=== PATIENT | female | born 1960 | race Caucasian/White ===

== ENCOUNTER 2017-11-12 11:47 | Emergency (ER) | payer OTHER ==
[~2017-11-12] VITALS: Ht 149.9 cm; Wt 57.9 kg
[~2017-11-12 11:47] MED LIST: FAMC125T PO; HERB LAX PO; IODINE PO
[2017-11-12 11:51] VITALS: TEMP 36.7; Ht 149.9 cm; Wt 57.9 kg
--- NOTE | 2017-11-12 12:27 | DIAGNOSTIC IMAGING REPORT ---
CHEST ONE VIEW PORTABLE CLINICAL HISTORY: syncope dyspnea COMPARISON STUDY: 04/24/2014 FINDINGS: The bones soft tissues and hemidiaphragms are normal. The cardiomediastinal silhouette is normal. The lungs are clear. The pulmonary vasculature is normal. IMPRESSION: Negative chest. The above report was generated using voice recognition software. It may contain grammatical, syntax or spelling errors. Electronically signed by: Shon Cohen M.D. 11/12/2017 12:26 PM Dictated Date/Time: 11/12/2017 12:26 PM
[2017-11-12 12:42] LABS: BASO % 0.1 %; BASO ABS # 0.01 K/uL (0-0.2); EOS % 0.8 %; EOS ABS # 0.07 K/uL (0-0.5); HEMATOCRIT 43.1 % (37-47); HEMOGLOBIN 15.2 g/dL (12.0-16.0); LYMPH % 22.3 %; LYMPH ABS # 1.84 K/uL (1.2-3.4); MEAN CELL VOLUME 89.4 fL (80-100); MEAN CORPUSCULAR HEMOGLOBIN 31.5 pg (25-34); MEAN CORPUSCULAR HGB CONC 35.3 g/dl (32-36); MEAN PLATELET VOLUME 10.2 fL (7.4-10.4); MONO % 3.9 %; MONO ABS # 0.32 K/uL (0.11-0.59); NEUT % 72.9 %; NEUT ABS # 6.01 K/uL (1.4-6.5); PLATELET COUNT 205 K/uL (130-400); RED CELL DISTRIBUTION WIDTH CV 12.8 % (11.5-14.5); RED CELL DISTRIBUTION WIDTH SD 41.7 fL (36.4-46.3); WHITE BLOOD COUNT 8.25 K/uL (4.8-10.8)
[2017-11-12] MEDS ORDERED: FMV500 (12:55)
[2017-11-12 13:10] LABS: ALBUMIN 4.3 gm/dl (3.4-5.0); ALT/SGPT 71 U/L (12-78); AST/SGOT 55 U/L (15-37); BLOOD UREA NITROGEN 14 mg/dl (7-18); CALCIUM 9.7 mg/dl (8.5-10.1); CARBON DIOXIDE 25 mmol/L (21-32); CREATININE 0.83 mg/dl (0.60-1.20); GLUCOSE 101 mg/dl (70-99); POTASSIUM 3.9 mmol/L (3.5-5.1); SODIUM 139 mmol/L (136-145)
[2017-11-12 13:19] LABS: ALKALINE PHOSPHATASE 68 U/L (45-117); TOTAL PROTEIN 7.8 gm/dl (6.4-8.2)
[2017-11-12] MEDS ORDERED: OPTIRAY 320 IV PRN (13:45)
--- NOTE | 2017-11-12 14:03 | DIAGNOSTIC IMAGING REPORT ---
(CHEST FOR PE) ANGIO WITH CT DOSE: 321.14 mGycm HISTORY: Chest pain dyspnea TECHNIQUE: Multiaxial CT images of the chest were performed following the intravenous administration of contrast to evaluate the pulmonary arteries. Maximal intensity projection images were also obtained. A dose lowering technique was utilized adhering to the principles of ALARA. COMPARISON STUDY: None. FINDINGS: There is a normal caliber thoracic aorta with no evidence for dissection. There is no evidence for pulmonary embolus. No pleural effusions. No pneumothorax. The liver and spleen are unremarkable. No mediastinal or hilar lymphadenopathy. The central airways are patent. The lungs are clear. Note is made of a small amount of perihepatic ascites. IMPRESSION: 1. Study is negative for pulmonary embolus. 2. Lungs are clear. 3. Small amount of perihepatic ascites. The above report was generated using voice recognition software. It may contain grammatical, syntax or spelling errors. Electronically signed by: Shon Cohen M.D. 11/12/2017 2:01 PM Dictated Date/Time: 11/12/2017 1:58 PM
--- NOTE | 2017-11-12 15:33 | EMERGENCY ROOM VISIT NOTE ---
History First contact with patient: 11:59 Chief Complaint: REFERRED BY DOCTOR Stated Complaint: REFERRED BY DOCTOR History of Present Illness The patient is a 56 year old female who presents to the Emergency Room with complaints of a possible syncopal episode which occurred last night. The patient states that she believes her symptoms occurred because she ate peanut butter, as she has had GI symptoms after eating peanuts in the past. She states that late last night, she had celery with peanut butter. She then states that she developed nausea and felt sick to her stomach. She tried drinking warm water and apple cider vinegar which did not help. She sat in the chair and states that she began to feel flushed. She went to the bathroom and had diarrhea. She states that when she stood up, she felt very sweaty and she crumpled to the floor walking out of the bathroom. She does not think that she lost consciousness. She states that she laid down and was very diaphoretic. She placed a cool washcloth over her forehead and was able to fall asleep. She states that she feels a little "woozy" today, but overall feels much better. She denies any shortness of breath or chest pain associated with the episode. She is not a smoker. She does not take hormone replacement pills. She denies recent travel. She denies leg pain or swelling. She does state that she has a father which had an CA at an old age and an uncle which at age 42 from an CA. She personally denies any history of medical problems. She denies numbness , weakness, confusion or urinary symptoms. Review of Systems A complete 10 point review of systems was reviewed with the patient with pertinent positives and negatives as per history of present illness. All else were negative. Past Medical/Surgical History Medical Problems: (1) No Known Active Medical Problems Family History No pertinent family history Social History Smoking Status: Never Smoker Alcohol Use: none Marital Status: Housing Status: lives with family Current/Historical Medications Scheduled [Herb Lax], 2 TABS PO DAILY [Iodine], 3 DROPS PO DAILY Miscellaneous Medications Famciclovir (Famciclovir) Physical Exam Vital Signs Date Time Temp Pulse Resp B/P (MAP) Pulse Ox O2 Delivery O2 Flow Rate FiO2 11/12/17 15:45 83 17 105/63 97 Room Air 11/12/17 14:30 83 18 111/83 98 Room Air 11/12/17 12:31 90 18 127/83 97 Room Air 87 124/87 97 118/92 11/12/17 12:17 96 11/12/17 11:51 36.7 117 18 149/94 99 Room Air Physical Exam VITALS: Vitals are noted on the nurse's note and reviewed by myself. Vital signs stable. GENERAL: This is a 56-year-old female, in no acute distress, nondiaphoretic, well-developed well-nourished. SKIN: The skin was without rashes, erythema, edema, or bruising. HEAD: Normocephalic atraumatic. EARS: External auditory canals clear, tympanic membranes pearly parra without erythema or effusion bilaterally. EYES: Pupils equal round and reactive to light and accommodation. Extraocular movements intact. MOUTH: Mucous membranes moist. Tonsils are not enlarged. Pharynx without erythema or exudate. NECK: Supple without nuchal rigidity. No lymphadenopathy. HEART: Regular rate and rhythm without murmurs gallops or rubs. LUNGS: Clear to auscultation bilaterally without wheezes, rales or rhonchi. ABDOMEN: Positive bowel sounds x 4. Soft, nontender to palpation. MUSCULOSKELETAL: Strength 5/5 throughout. NEURO: Patient was alert and oriented to person place and time. No focal neurological deficits. Medical Decision & Procedures ER Provider Diagnostic Interpretation: CHEST ONE VIEW PORTABLE FINDINGS: The bones soft tissues and hemidiaphragms are normal. The cardiomediastinal silhouette is normal. The lungs are clear. The pulmonary vasculature is normal. IMPRESSION: Negative chest. (CHEST FOR PE) ANGIO WITH FINDINGS: There is a normal caliber thoracic aorta with no evidence for dissection. There is no evidence for pulmonary embolus. No pleural effusions. No pneumothorax. The liver and spleen are unremarkable. No mediastinal or hilar lymphadenopathy. The central airways are patent. The lungs are clear. Note is made of a small amount of perihepatic ascites. IMPRESSION: 1. Study is negative for pulmonary embolus. 2. Lungs are clear. 3. Small amount of perihepatic ascites. Laboratory Results 11/12/17 12:22 Red Blood Count 4.82, Mean Corpuscular Volume 89.4, Mean Corpuscular Hemoglobin 31.5, Mean Corpuscular Hemoglobin Concent 35.3, Mean Platelet Volume 10.2, Neutrophils (%) (Auto) 72.9, Lymphocytes (%) (Auto) 22.3, Monocytes (%) (Auto) 3.9, Eosinophils (%) (Auto) 0.8, Basophils (%) (Auto) 0.1, Neutrophils # (Auto) 6.01, Lymphocytes # (Auto) 1.84, Monocytes # (Auto) 0.32, Eosinophils # (Auto) 0.07, Basophils # (Auto) 0.01 11/12/17 12:22 Test 11/12/17 12:22 11/12/17 13:28 11/12/17 14:32 White Blood Count 8.25 K/uL (4.8-10.8) Red Blood Count 4.82 M/uL (4.2-5.4) Hemoglobin 15.2 g/dL (12.0-16.0) Hematocrit 43.1 % (37-47) Mean Corpuscular Volume 89.4 fL (80-100) Mean Corpuscular Hemoglobin 31.5 pg (25-34) Mean Corpuscular Hemoglobin Concent 35.3 g/dl (32-36) Platelet Count 205 K/uL (130-400) Mean Platelet Volume 10.2 fL (7.4-10.4) Neutrophils (%) (Auto) 72.9 % Lymphocytes (%) (Auto) 22.3 % Monocytes (%) (Auto) 3.9 % Eosinophils (%) (Auto) 0.8 % Basophils (%) (Auto) 0.1 % Neutrophils # (Auto) 6.01 K/uL (1.4-6.5) Lymphocytes # (Auto) 1.84 K/uL (1.2-3.4) Monocytes # (Auto) 0.32 K/uL (0.11-0.59) Eosinophils # (Auto) 0.07 K/uL (0-0.5) Basophils # (Auto) 0.01 K/uL (0-0.2) RDW Standard Deviation 41.7 fL (36.4-46.3) RDW Coefficient of Variation 12.8 % (11.5-14.5) Immature Granulocyte % (Auto) 0.0 % Immature Granulocyte # (Auto) 0.00 K/uL (0.00-0.02) D-Dimer > 15902 ug/L FEU (0-500) Anion Gap 7.0 mmol/L (3-11) Est Creatinine Clear Calc Drug Dose 58.0 ml/min Estimated GFR () 90.7 Estimated GFR (Non- 78.3 BUN/Creatinine Ratio 17.2 (10-20) Calcium Level 9.7 mg/dl (8.5-10.1) Magnesium Level 2.3 mg/dl (1.8-2.4) Total Bilirubin 0.3 mg/dl (0.2-1) Aspartate Amino Transf (AST/SGOT) 55 U/L (15-37) Alanine Aminotransferase (ALT/SGPT) 71 U/L (12-78) Alkaline Phosphatase 68 U/L (45-117) Total Protein 7.8 gm/dl (6.4-8.2) Albumin 4.3 gm/dl (3.4-5.0) Globulin 3.5 gm/dl (2.5-4.0) Albumin/Globulin Ratio 1.2 (0.9-2) Thyroid Stimulating Hormone (TSH) 1.500 uIu/ml (0.300-4.500) Chemistry Specimen Hemolysis Urine Color YELLOW Urine Appearance CLEAR (CLEAR) Urine pH 6.5 (4.5-7.5) Urine Specific Seibert 1.006 (1.000-1.030) Urine Protein NEG (NEG) Urine Glucose (UA) NEG (NEG) Urine Ketones NEG (NEG) Urine Occult Blood NEG (NEG) Urine Nitrite NEG (NEG) Urine Bilirubin NEG (NEG) Urine Urobilinogen NEG (NEG) Urine Leukocyte Esterase NEG (NEG) Troponin I < 0.015 ng/ml (0-0.045) ECG Per My Interpretation Indication: syncope Rhythm: normal sinus Findings: nonspecific-ST abn (Inferior), no ectopy Comparison ECG Date: no prior available ED Course The patient was evaluated as above. Labs were drawn and IV access was obtained. D-dimer was found to be significantly elevated. CTA of the chest was ordered. Patient was reevaluated and findings were discussed. She is asymptomatic. She will be discharged home. Discharge instructions were reviewed with the patient. The patient verbalized understanding of my assessment and treatment plan and was discharged home in good condition. Medical Decision Differential diagnosis includes arrhythmia, ACS, PE, electrolyte abnormality, anemia, vasovagal episode, orthostatic hypotension, among others. The patient is a 56-year-old healthy female who presents today complaining of a probable syncopal episode. Labs revealed no leukocytosis, anemia or concerning electrolyte abnormalities. AST minimally elevated at 55. Urinalysis was not suggestive of infection. EKG was interpreted by myself and shows nonspecific ST abnormality with no acute ischemic changes. Troponin 2 negative. D-dimer was found to be significantly elevated and CT of the chest was ordered. This fortunately found no pulmonary embolism. Patient will follow up with her primary care provider. Vital signs stable throughout the stay and patient was asymptomatic. The patient's case was reviewed with Dr. Sifuentes, ED attending physician, who agreed with my assessment and treatment plan. Based on the patient's presentation and work up, I feel the patient is stable for outpatient treatment. The patient was educated to return to the emergency department for any worsening of their current condition or new/concerning symptoms. She will follow up with her PCP. Medication Reconcilliation Current Medication List: was personally reviewed by me Blood Pressure Screening Patient's blood pressure: Normal blood pressure Impression Primary Impression: Episode of syncope Departure Information Dispostion Home / Self-Care Condition GOOD Referrals Shon Hahn M.D. (PCP) Patient Instructions My [facility] Additional Instructions Follow-up with your primary care provider. Contact them today to schedule an appointment. Make sure to rest and drink plenty of fluids. Return to the emergency department with any worsening symptoms, recurrent episodes of passing out, chest pain, shortness of breath or other new/ concerning symptoms. Problem Qualifiers Primary Impression: Episode of syncope Syncope type: unspecified Qualified Codes: R55 - Syncope and collapse
[2017-11-12 15:45] VITALS: BP 105/63; PULSE 83; O2SAT 97
== END 2017-11-12 15:50 | disposition home or self-care (01) ==
LOC: C.EDB 11:49 → C.EDA 15:50
DX: R55 Syncope and collapse (principal)